=== PATIENT | male | born 1990 | race Two or more races ===

== ENCOUNTER 2018-02-27 00:47 | Emergency (ER) | payer MEDICAID ==
[~2018-02-27] VITALS: Ht 167.6 cm; Wt 78.6 kg
[~2018-02-27 00:47] MED LIST: HYDR-3972 PO
[2018-02-27 00:50] VITALS: BP 129/90
== END 2018-02-27 04:46 | disposition home or self-care (01) ==
LOC: ER 00:48
DX: S01.01XA Laceration without foreign body of scalp, initial encounter (principal); F10.129 Alcohol abuse with intoxication, unspecified; Z79.899 Other long term (current) drug therapy; X58.XXXA Exposure to other specified factors, initial encounter; Y93.89 Activity, other specified; Y92.89 Other specified places as the place of occurrence of the external cause; Y99.8 Other external cause status
CPT/HCPCS: 12002; 70450; 72125; 99284; A6446; A6449